=== PATIENT | male | born 1990 | race African-American/Black ===

== ENCOUNTER 2018-04-02 08:15 | Emergency (ER) | payer SELFPAY ==
[2018-04-02] MEDS ORDERED: CEPHALEXIN 500 MG CAPSULE PO ONE (09:38)
[2018-04-02] MEDS ORDERED: IBUPROFEN 800 MG TABLET PO ONE (09:38)
--- NOTE | 2018-04-02 09:40 | ER Document Report ---
HPI - HPI Patient complains to provider of: Right great toe pain Time Seen by Provider: 04/02/18 09:09 Onset: Yesterday Quality of pain: Achy Pain Level: 3 Context: Patient presents complaining of right great toe tenderness and swelling that started yesterday. Patient denies any injury. Patient states that he is noted occasional pus coming from the wound. Associated Symptoms: denies: Fever Exacerbated by: Standing, Movement Relieved by: Denies Similar symptoms previously: No Recently seen / treated by doctor: No - ROS ROS below otherwise negative: Yes Systems Reviewed and Negative: Yes All other systems reviewed and negative - CONSTITUTIONAL Constitutional: DENIES: Fever, Chills - MUSCULOSKELETAL Musculoskeletal: REPORTS: Extremity pain, Swelling Past Medical History - General Information source: Patient - Social History Smoking Status: Current Every Day Smoker Chew tobacco use (# tins/day): No Smoking Education Provided: Yes Frequency of alcohol use: Social Drug Abuse: Marijuana Occupation: construction Family History: Reviewed & Not Pertinent Patient has suicidal ideation: No Patient has homicidal ideation: No Neurological Medical History: Reports: Hx Migraine Renal/ Medical History: Denies: Hx Peritoneal Dialysis Surgical Hx: Negative Vertical Provider Document - CONSTITUTIONAL Agree With Documented VS: Yes Exam Limitations: No Limitations General Appearance: WD/WN, No Apparent Distress - INFECTION CONTROL TRAVEL OUTSIDE OF THE [place] IN LAST 30 DAYS: No - HEENT HEENT: Atraumatic, Normocephalic - NECK Neck: Normal Inspection - RESPIRATORY Respiratory: No Respiratory Distress - CARDIOVASCULAR Pulses: Normal: Dorsalis pedis - MUSCULOSKELETAL/EXTREMETIES Musculoskeletal/Extremeties: MAEW, FROM, Tender - Tenderness along lateral aspect of the right great toenail margin, minimal purulent drainage noted with faint erythema, no drainable abscess, Edema. negative: Eccymosis - NEURO Level of Consciousness: Awake, Alert, Appropriate Motor/Sensory: No Motor Deficit - DERM Integumentary: Warm, Dry. negative: Abscess Notes: See above Course - Vital Signs Vital signs: Temp Pulse Resp BP Pulse Ox 97.4 F 88 16 126/64 H 100 04/02/18 08:35 04/02/18 08:35 04/02/18 08:35 04/02/18 08:35 04/02/18 08:35 Discharge - Discharge Clinical Impression: Paronychia of toe Qualifiers: Laterality: right Qualified Code(s): L03.031 - Cellulitis of right toe Condition: Stable Disposition: HOME, SELF-CARE Instructions: Cephalexin ([facility]), Paronychia ([facility]) Additional Instructions: Return immediately for any new or worsening symptoms Followup with your primary care provider, call tomorrow to make a followup appointment Prescriptions: Cephalexin Monohydrate [Keflex 500 mg Capsule] 500 mg PO Q6H 5 Days capsule Naproxen [Naprosyn 250 Nmg Tablet] 1 tab PO BID #14 tablet Forms: Smoking Cessation Education, Return to Work Referrals: [facility] [Provider Group] - Follow up as needed [facility] [Provider Group] - Follow up as needed
[2018-04-02 09:52] VITALS: BP 150/88
== END 2018-04-02 09:59 | disposition home or self-care (01) ==
LOC: ER 08:15
DX: L03.031 Cellulitis of right toe (principal); M79.674 Pain in right toe(s); F17.200 Nicotine dependence, unspecified, uncomplicated; F12.10 Cannabis abuse, uncomplicated
CPT/HCPCS: 99283